=== PATIENT | male | born 1990 | race African-American/Black ===

== ENCOUNTER 2019-04-25 11:39 | Inpatient (IN) ==
--- OUTSIDE RECORDS SUMMARY | 2019-04-25 11:43 | External Medical Summary | Continuity of Care Document ---
:1990 Author Name Danish Blackwell Address Unavailable Unavailable , Care Team Providers Name Role Phone Unavailable Unavailable Unavailable Problems Active medical history not documented Allergies and Adverse Reactions Allergy history not documented Medications Medications not documented Procedures Procedures not documented Immunizations DTP On: 1991 0:00 HIB On: 1991 0:00 Polio On: 1991 0:00 DTP On: 1991 0:00 HIB On: 1991 0:00 Polio On: 1991 0:00 DTP On: 1991 0:00 HIB On: 1991 0:00 DTP On: 13-Oct-1992 0:00 HIB On: 13-Oct-1992 0:00 Polio On: 13-Oct-1992 0:00 MMR On: 13-Oct-1992 0:00 Hepatitis B On: 04-Jun-1994 0:00 Hepatitis B On: 09-May-1995 0:00 DTaP On: 26-Jan-1997 0:00 Polio On: 26-Jan-1997 0:00 MMR On: 26-Jan-1997 0:00 Hepatitis B On: 26-Jan-1997 0:00 Td On: 18-Aug-2002 0:00 Meningo (Menactra) On: 30-Jun-2007 0:00 PPD On: 31-May-2008 0:00 Varicella Comments:had disease Plan of Treatment Planned Observations Planned Goals not documented Results No Known Results Results not documented
[2019-04-25] MEDS ORDERED: ONDANSETRON INJ 2 MG/ML 2 ML VIAL IV STA (12:21)
[2019-04-25] MEDS ORDERED: MoRPHine SULFATE 4 MG/ML 1 ML CARP\\VIAL IV STA (12:21)
[2019-04-25] MEDS ORDERED: SODIUM CHLORIDE 0.9% 1000ML 2,000 ML IV ONE (12:21)
[2019-04-25 12:22] LABS: Basophils # (auto) 0.02 K/uL (0-0.2); Basophils % (auto) 0.2 %; Eosinophils # (auto) 0.14 K/uL (0-0.5); Eosinophils % (auto) 1.7 %; Hematocrit (blood only) 38.9 % (42-52); Hemoglobin 13.7 g/dL (14.0-18.0); Immature Granulocytes # (auto) 0.02 K/uL (0.00-0.02); Immature Granulocytes % (auto) 0.2 %; Lymphocytes % (auto) 19.4 %; Mean Corpuscular Hgb Conc 35.2 g/dL (32-36); Mean Corpuscular Volume 87.8 fL (80-100); Mean Platelet Volume 8.9 fL (7.4-10.4); Monocytes # (auto) 0.97 K/uL (0.11-0.59); Monocytes % (auto) 11.8 %; Neutrophils # (auto) 5.49 K/uL (1.4-6.5); Neutrophils % (auto) 66.7 %; Platelet Count 302 K/uL (130-400); RDW Coefficient of Variation 13.6 % (11.5-14.5); RDW Standard Deviation 43.9 fL (36.4-46.3); Red Blood Count 4.43 M/uL (4.7-6.1); White Blood Count 8.24 K/uL (4.8-10.8)
[2019-04-25 12:38] LABS: Albumin Level 4.3 gm/dl (3.4-5.0); BUN Creatinine Ratio 5.2 (10-20); Calcium 9.3 mg/dl (8.5-10.1); Creatinine Clr Calc Pharmacy 88.6 ml/min; Est GFR (African American) 94.5; Est GFR (Non-African American) 81.6; Potassium 3.1 mmol/L (3.5-5.1)
[2019-04-25 12:41] LABS: Albumin Globulin Ratio 1.1 (0.9-2); Bilirubin,Total 1.2 mg/dl (0.2-1); Globulin 3.9 gm/dl (2.5-4.0); Total Protein 8.2 gm/dl (6.4-8.2)
[2019-04-25] MEDS ORDERED: MoRPHine SULFATE 10 MG/ML CARP/VIAL IV STA ×2 (14:06→16:24)
[2019-04-25] MEDS ORDERED: IOVERSOL 100ml IV PRN (15:35)
--- NOTE | 2019-04-25 15:59 | CT Scan Report ---
CT SCAN OF THE ABDOMEN AND PELVIS WITH IV CONTRAST CLINICAL HISTORY: Right-sided abdominal pain. COMPARISON STUDY: No priors. TECHNIQUE: Following the IV administration of 95 cc of Optiray 320, CT scan of the abdomen and pelvi s is performed from the lung bases to the proximal femora. Images are reviewed in the axial, sagittal , and coronal planes. IV contrast was administered without complication. Oral contrast was utilized. A dose lowering technique was utilized adhering to the principles of ALARA. CT DOSE: 263.97 mGy.cm FINDINGS: Lung bases: The heart is normal in size and without pericardial effusion. The lung bases are clear. Liver: The contrast-enhanced liver is normal in size, contour, and attenuation. There is no intrahepa tic biliary ductal dilatation. The hepatic veins and portal veins are patent. Gallbladder: Unremarkable. Spleen: Normal in size and attenuation. Pancreas: The pancreas appears enlarged and heterogeneous. The gland enhances homogeneously. There is fluid surrounding the pancreas. The splenic vein is patent. Adrenal glands: Unremarkable. Kidneys: The contrast enhanced kidneys are normal in size and without hydronephrosis. The kidneys enh ance symmetrically. Abdominal vasculature: The abdominal aorta is normal in course and caliber. Bowel: The colon is underdistended. Mild diffuse colonic wall thickening is suggested. No bowel obstr uction is seen. The appendix is normal as visualized. Peritoneum: There is a moderate volume of abdominopelvic ascites. No intraperitoneal free air is seen . Lymphadenopathy: None. Pelvic viscera: The bladder, prostate, and seminal vesicles are normal as visualized. Skeletal structures: No lytic or blastic lesions are seen. IMPRESSION: 1. The pancreas appears enlarged, heterogeneous, and edematous and the pancreas is surrounded by flui d. Correlate clinically and with serum amylase/lipase levels for evidence of acute pancreatitis. 2. There is a moderate volume of abdominopelvic ascites. 3. Question mild diffuse colonic wall thickening. Correlate clinically for evidence of a mild nonspec ific pancolitis. 4. Additional findings as above. Electronically signed by: Yordy Pollock M.D. 04/25/2019 3:58 PM
[2019-04-25] MEDS ORDERED: SODIUM CHLORIDE 0.9% 1000ML 1,000 ML IV ONE (16:09)
[2019-04-25] MEDS ORDERED: FOLIC ACID 1 MG in SYRINGE 9.8 ML IV STA (16:09)
[2019-04-25] MEDS ORDERED: THIAMINE HCL 100 MG in SYRINGE 9 ML IV STA (16:09)
[2019-04-25] MEDS: MULTIVITAMIN TAB PO SCH (17:09)
--- NOTE | 2019-04-25 17:10 | Ultrasound Report ---
ULTRASOUND RIGHT UPPER QUADRANT ABDOMEN CLINICAL HISTORY: Right upper quadrant abdominal pain. COMPARISON STUDY: Abdominal CT performed the same day 04/25/2019 TECHNIQUE: Real-time, grayscale, and color flow sonography of the right upper quadrant of the abdomen was performed. Images are reviewed in the transverse and longitudinal planes. FINDINGS: Liver: The liver is normal in size and echotexture. There is no intrahepatic biliary ductal dilatatio n. The main portal vein is patent. Gallbladder: The gallbladder is normal in appearance. No gallstones are identified. There is no gallb ladder wall thickening or pericholecystic fluid. A sonographic Sanchez's sign is reportedly absent. Th e common bile duct measures up to 0.5 cm in diameter. Pancreas: Visualized portions of the pancreatic head and body appear mildly enlarged and heterogeneou s. The splenic vein is patent. Right kidney: Survey images of the right kidney demonstrate normal size and echotexture. There is no hydronephrosis. Ascites: There is a small volume of ascites identified in the right upper quadrant. IMPRESSION: 1. The visualized portions of the pancreas appear mildly enlarged and heterogeneous. 2. No shadowing gallstones are identified. There is no intra or extrahepatic biliary ductal dilatatio n. 3. A small volume of ascites is seen in the right upper quadrant. Electronically signed by: Yoryd Pollock M.D. 04/25/2019 5:09 PM
--- NOTE | 2019-04-25 18:07 | History & Physical Report ---
Date of Service April 25, 2019 Assessment & Plan (1) Acute pancreatitis: This is a 28-year-old male with PMH of alcohol use disorder who presents with worsening abdominal pain x 5 days who was found to have acute pancreatitis. -Likely etoh induced with h/o heavy alcohol intake, last drink last evening -Tachycardic at 110, afebrile, no leukocytosis -Lipase of 6676, also with transaminitis -Ct abd/pelvis: the pancreas appears enlarged, heterogeneous, and edematous and the pancreas is surrounded by fluid. There is a moderate volume of abdominopelvic ascites. Question mild diffuse colonic wall thickening -Received 3 L NSS in ED. Will continue IV hydration with LR @ 200 ml/L -Keep NPO for now. Pain control. Repeat CMP in AM -Routine GI consult (2) Transaminitis: AST of 145, ALT of 113, and T bili of 1.2 -ED provider discussed with GI service due to concern initially for choledocholithiasis but felt to be more consistent with alcoholic pancreatitis -No gall stones or intra or extrahepatic biliary ductal dilatation on GB ultrasound. CT abd/pelvis consistent with acute pancreatitis. No intrahepatic biliary ductal dilatation -Continue monitoring liver profile (3) Alcohol use disorder: Serum alcohol level <3 -IV thiamine and folic acid given in ED -Gabapentin and IV ativan per withdrawal protocol -Additional PRN ativan for anxiety/agitation -PO Thiamine, folic acid and MV tomorrow DVT Ppx: Early ambulation Code status: FULL PCP: Alison Dispo: Admitted to telemetry. Plan to return home once medically stable. Patient seen in collaboration with Dr. Bishop. Please see addendum. History of Present Illness Chief Complaint: Abdominal pain, nausea, vomiting Primary Care Provider: Satinder Rosas This is a 28-year-old male with PMH of alcohol use disorder who presents with worsening abdominal pain x 5 days. Patient started to develop a tugging and twisting sensation in his epigastrium on Friday. Has since then continued to have pain and developed nausea and vomiting as well as diarrhea. Pain is in the midepigastrium currently with radiation to his back. Denies any abdominal pain similar to this in the past. Denies any history of pancreatitis. Patient endorses drinking two 40 ounce beers daily and has done so for the past 2 years. Has drank less than usual these past few days and has experienced tremors that went away once he drank again. Last drink was last night. Denies any fever, chills, lightheadedness, headache, chest pain, palpitations, shortness of breath, hematemesis, constipation, melena or hematochezia. Patient is normotensive but tachycardic up to 110 initially. Lipase of 6676. Also with transaminitis with AST of 145, ALT of 113, and T bili of 1.2. Serum alcohol level is less than 3. Allergies Allergy/AdvReac Type Severity Reaction Status Date / Time milk Allergy Unknown unknown Unverified 04/25/19 13:15 No Known Allergies AdvReac Unknown ANAPHYLAXIS Unverified 04/25/19 13:15 Home Medications Home Medications Medication Instructions Recorded Confirmed Type No Known Home Medications 04/25/19 04/25/19 History Past Med/Surg History Medical History Acute alcoholic pancreatitis (Acute) Alcohol use disorder (Chronic) Surgical History No pertinent past surgical history (Chronic) Family History Other No significant family history Social History Preferred Language: Hungarian Communication Ability: Effective Beliefs That Will Affect Care: None marital status: Single Current Living Situation: Significant Other current occupational status: unemployed Other Information That Helps Us Care for You: No Feels Safe at Home: Yes Smoking Status: Light tobacco smoker Tobacco Type: cigarettes Do You Dip or Chew Tobacco: No Hx Alcohol Use: Yes Alcohol type: beer Hx Substance Use: No Review of Systems Review of Systems: At least ten systems reviewed and negative except as noted in the HPI. Physical Exam Physical Exam: General Appearance: WD/WN, well-built male, no apparent distress Head: normocephalic, atraumatic Eyes: normal inspection, non-icteric, PERRL, EOMI ENT: hearing grossly normal, pharynx normal (dry mucous membranes) Neck: supple, no JVD, no adenopathy Respiratory/Chest: lungs clear to auscultation. No wheezes, rales or rhonci. No respiratory distress or accessory muscle use Cardiovascular: tachycardic, no murmur, normal peripheral pulses Abdomen/GI: normal bowel sounds, soft, tender to palpation in epigastrium, LUQ Extremities/Musculoskelatal: normal inspection, no calf tenderness, normal capillary refill, no pedal edema Neurologic/Psych: alert, normal mood/affect, oriented x 3 Skin: mild jaundice noted in trunk, warm/dry Results & Data Vital Signs (Past 12 Hours) Vital Signs Temp Pulse Pulse Resp BP BP Pulse Ox 04/25/19 17:01 20 130/85 99 04/25/19 16:30 94 H 19 137/90 97 04/25/19 16:00 99 H 19 136/93 97 04/25/19 15:31 107 H 18 140/94 97 04/25/19 15:00 103 H 18 129/88 98 04/25/19 13:30 100 H 18 115/81 100 04/25/19 12:10 97 H 18 100 04/25/19 11:46 36.8 C 111 H 18 112/73 100 Laboratory Results Short CBC 04/25/19 04/25/19 04/25/19 Range/Units 12:07 12:07 17:58 WBC 8.24 (4.8-10.8) K/uL RBC 4.43 L (4.7-6.1) M/uL Hgb 13.7 L (14.0-18.0) g/dL Hct 38.9 L (42-52) % MCV 87.8 (80-100) fL MCH 30.9 (25-34) pg MCHC 35.2 (32-36) g/dL RDW Std Deviation 43.9 (36.4-46.3) fL RDW Coeff of Cherise 13.6 (11.5-14.5) % Plt Count 302 (130-400) K/uL MPV 8.9 (7.4-10.4) fL Immature Gran % (Auto) 0.2 % Neut % (Auto) 66.7 % Lymph % (Auto) 19.4 % Branch % (Auto) 11.8 % Eos % (Auto) 1.7 % Baso % (Auto) 0.2 % Immature Gran # (Auto) 0.02 (0.00-0.02) K/uL Neut # (Auto) 5.49 (1.4-6.5) K/uL Lymph # (Auto) 1.60 (1.2-3.4) K/uL Branch # (Auto) 0.97 H (0.11-0.59) K/uL Eos # (Auto) 0.14 (0-0.5) K/uL Baso # (Auto) 0.02 (0-0.2) K/uL Sodium 134 L (136-145) mmol/L Potassium 3.1 L (3.5-5.1) mmol/L Chloride 100 (98-107) mmol/L Carbon Dioxide 23 (21-32) mmol/L Anion Gap 11.0 (3-11) BUN 6 L (7-18) mg/dl Creatinine 1.21 (0.6-1.4) mg/dl Est Cr Clr Drug Dosing 88.6 ml/min Est GFR ( Amer) 94.5 Est GFR (Non-Af Amer) 81.6 BUN/Creatinine Ratio 5.2 L (10-20) Glucose 129 H (70-99) mg/dl Calcium 9.3 (8.5-10.1) mg/dl Total Bilirubin 1.2 H (0.2-1) mg/dl AST 145 H (15-37) U/L ALT 113 H (12-78) U/L Alkaline Phosphatase 80 (45-117) U/L Total Protein 8.2 (6.4-8.2) gm/dl Albumin 4.3 (3.4-5.0) gm/dl Globulin 3.9 (2.5-4.0) gm/dl Albumin/Globulin Ratio 1.1 (0.9-2) Lipase 6676 H (73-393) U/L Urine Color Urine Appearance (Clear) Urine pH (4.5-7.5) Ur Specific Hayes (1.000-1.030) Urine Protein (Negative) Urine Glucose (UA) (Negative) Urine Ketones (Negative) Urine Blood (Negative) Urine Nitrite (Negative) Urine Bilirubin (Negative) Urine Urobilinogen (Negative) Ur Leukocyte Esterase (Negative) Ethyl Alcohol mg/dL < 3.0 (0-3) mg/dl 04/25/19 Range/Units 18:40 WBC (4.8-10.8) K/uL RBC (4.7-6.1) M/uL Hgb (14.0-18.0) g/dL Hct (42-52) % MCV (80-100) fL MCH (25-34) pg MCHC (32-36) g/dL RDW Std Deviation (36.4-46.3) fL RDW Coeff of Cherise (11.5-14.5) % Plt Count (130-400) K/uL MPV (7.4-10.4) fL Immature Gran % (Auto) % Neut % (Auto) % Lymph % (Auto) % Branch % (Auto) % Eos % (Auto) % Baso % (Auto) % Immature Gran # (Auto) (0.00-0.02) K/uL Neut # (Auto) (1.4-6.5) K/uL Lymph # (Auto) (1.2-3.4) K/uL Branch # (Auto) (0.11-0.59) K/uL Eos # (Auto) (0-0.5) K/uL Baso # (Auto) (0-0.2) K/uL Sodium (136-145) mmol/L Potassium (3.5-5.1) mmol/L Chloride (98-107) mmol/L Carbon Dioxide (21-32) mmol/L Anion Gap (3-11) BUN (7-18) mg/dl Creatinine (0.6-1.4) mg/dl Est Cr Clr Drug Dosing ml/min Est GFR ( Amer) Est GFR (Non-Af Amer) BUN/Creatinine Ratio (10-20) Glucose (70-99) mg/dl Calcium (8.5-10.1) mg/dl Total Bilirubin (0.2-1) mg/dl AST (15-37) U/L ALT (12-78) U/L Alkaline Phosphatase (45-117) U/L Total Protein (6.4-8.2) gm/dl Albumin (3.4-5.0) gm/dl Globulin (2.5-4.0) gm/dl Albumin/Globulin Ratio (0.9-2) Lipase (73-393) U/L Urine Color Yellow Urine Appearance Clear (Clear) Urine pH 5.0 (4.5-7.5) Ur Specific Hayes > 1.045 H (1.000-1.030) Urine Protein Negative (Negative) Urine Glucose (UA) Negative (Negative) Urine Ketones Negative (Negative) Urine Blood Negative (Negative) Urine Nitrite Negative (Negative) Urine Bilirubin Negative (Negative) Urine Urobilinogen Negative (Negative) Ur Leukocyte Esterase Negative (Negative) Ethyl Alcohol mg/dL (0-3) mg/dl BMP 04/25/19 12:07 Sodium 134 L Potassium 3.1 L Chloride 100 Carbon Dioxide 23 BUN 6 L Creatinine 1.21 Glucose 129 H Calcium 9.3 Liver Function 04/25/19 Range/Units 12:07 Total Bilirubin 1.2 H (0.2-1) mg/dl AST 145 H (15-37) U/L ALT 113 H (12-78) U/L Alkaline Phosphatase 80 (45-117) U/L Albumin 4.3 (3.4-5.0) gm/dl Urine 04/25/19 Range/Units 18:40 Urine Color Yellow Urine Appearance Clear (Clear) Urine pH 5.0 (4.5-7.5) Ur Specific Hayes > 1.045 H (1.000-1.030) Urine Protein Negative (Negative) Urine Glucose (UA) Negative (Negative) Diagnostic Findings GB ultrasound: IMPRESSION: 1. The visualized portions of the pancreas appear mildly enlarged and heterogeneous. 2. No shadowing gallstones are identified. There is no intra or extrahepatic biliary ductal dilatation. 3. A small volume of ascites is seen in the right upper quadrant. CT abd/pelvis: IMPRESSION: 1. The pancreas appears enlarged, heterogeneous, and edematous and the pancreas is surrounded by fluid. Correlate clinically and with serum amylase/lipase levels for evidence of acute pancreatitis. 2. There is a moderate volume of abdominopelvic ascites. 3. Question mild diffuse colonic wall thickening. Correlate clinically for evidence of a mild nonspecific pancolitis. 4. Additional findings as above. Supervising Physician Co-Signing Physician Notes Attending Addendum: delayed entry date of service as noted above care coordinated with QUYEN Medellin please refer to her notes for full details, I agree with her notes patient seen and examined, records reviewed by myself as well on exam, patient seen resting in bed, sitting up, not in distress, smiling epigastric pain adequately managed reports belching but no nausea, chest pain, shortness of breath, palpitations, dizziness no other symptoms VS noted and reviewed oriented x 3 , not in distress, speaks in sentences with no effort nor accessory muscle use normal rate, regular rhythm, no murmurs clear breath sounds bilaterally non distended, soft, mildly tender no bipedal edema, erythema, warmth no neuro deficits WBC 8.[address] abdomen: 1. The pancreas appears enlarged, heterogeneous, and edematous and the pancreas is surrounded by fluid. Correlate clinically and with serum amylase/lipase levels for evidence of acute pancreatitis. 2. There is a moderate volume of abdominopelvic ascites. 3. Question mild diffuse colonic wall thickening. Correlate clinically for evidence of a mild nonspecific pancolitis. 4. Additional findings as above. ASSESSMENT AND PLAN ACUTE PANCREATITIS, LIKELY ALCOHOL INDUCED received IV fluid boluses continue LR at 200cc/hr NPO PRN Analgesics consult GI TRANSAMINITIS likely from Alcoholism US GB no signs of biliary obstruction monitor ALCOHOLISM alcohol withdrawal protocol other diagnoses and plan of care as per QUYEN Medellin's notes Rayshawn Bishop MD
--- NOTE | 2019-04-25 18:50 | Emergency Department Note ---
Entered by Carla Currie acting as a scribe for Osman Muhammad DO History of Present Illness General Chief complaint: Abdominal Pain Stated complaint: CRAMPS,CHILLS,PAIN IN STOMACH Time Seen by Provider: 04/25/19 11:54 Source: patient History of Present Illness Onset (ago): day(s) 5 Location: abdomen Pain Consistency: + other (worsening) Maximum Pain Intensity: 7 Current Pain Intensity: 9 Quality: + other ("bloated") Relieved By: + other (drinking water) Exacerbated By: + movement Associated symptoms: + denies other symptoms (hematemesis, hematochezia, melena, pain with urination, burning with urination), + nausea/vomiting (vomiting) and + other (diarrhea) The patient is a 28 year old male who presents to the ED with complaints of worsening abdominal pain starting 5 days ago. The patient states that the pain feels like it is all throughout his abdomen, but is worst in the upper middle. He states that when he moves, though, it makes the pain travel all throughout his abdomen. He notes that drinking water helps the pain some. He reports that at first he thought it was constipation as he was bloated, but he has moved his bowels and it hasnt gotten better. He notes that his last normal bowel movement was last night, but he moved them this morning and it was diarrhea. The patient states that today the pain was so much worse and he couldnt take it anymore so he came to the ED. The patient complains of vomiting starting today. He notes that he vomited 5-6 times. The patient currently rates his pain as a 9/10 in severity. The patient denies hematemesis, hematochezia, melena, being around anyone sick, burning with urination, pain with urination, and a history of abdominal surgeries. Patient initially admitted that he drinks about 240 ounce beers per day and has been doing this for the past 2 years. Last drink was last night. Home Medications Home Medications Medication Instructions Recorded Confirmed Type No Known Home Medications 04/25/19 04/25/19 History Allergies Allergy/AdvReac Type Severity Reaction Status Date / Time milk Allergy Unknown unknown Unverified 04/25/19 13:15 No Known Allergies AdvReac Unknown ANAPHYLAXIS Unverified 04/25/19 13:15 Past Med/Surg History Medical History Alcoholic intoxication (Acute) Family History Other No significant family history Social History Preferred Language: Mexican marital status: Single Current Living Situation: Significant Other current occupational status: unemployed Feels Safe at Home: Yes Smoking Status: Light tobacco smoker Review of Systems See HPI for pertinent positives & negatives. and A total of 10 systems reviewed and were otherwise negative Physical Exam Vital Signs Vital Signs - 24 hr 04/25/19 11:46 04/25/19 12:10 04/25/19 13:30 Temperature 36.8 C Temperature Source Oral Sepsis Recent Fever Within 48 Hours No Sepsis New/Unexplained Change in Mental Status No Sepsis Action Taken by Nursing No Action Required Pulse Rate 111 H 97 H Pulse Rate [Apical] 100 H Pulse Rate from SpO2 Sensor Pulse Rhythm Regular Pulse Rhythm [Apical] Regular Pulse Strength [Apical] Normal Respiratory Rate 18 18 18 Respiratory Effort / Characteristics Non-Labored Non-Labored Spontaneous Respiratory Depth Normal Normal Respiratory Pattern Regular Regular Blood Pressure 112/73 Blood Pressure [Left Arm] 115/81 Blood Pressure Mean 86 Blood Pressure Mean [Left Arm] 92 Blood Pressure Position Sitting Pulse Oximetry 100 100 100 Oxygen Delivery Method Room Air Room Air Room Air 04/25/19 15:00 04/25/19 15:31 04/25/19 16:00 Temperature Temperature Source Sepsis Recent Fever Within 48 Hours Sepsis New/Unexplained Change in Mental Status Sepsis Action Taken by Nursing Pulse Rate 107 H 99 H Pulse Rate [Apical] 103 H Pulse Rate from SpO2 Sensor 100 H Pulse Rhythm Pulse Rhythm [Apical] Pulse Strength [Apical] Respiratory Rate 18 18 19 Respiratory Effort / Characteristics Respiratory Depth Respiratory Pattern Blood Pressure 140/94 136/93 Blood Pressure [Left Arm] 129/88 Blood Pressure Mean 109 107 Blood Pressure Mean [Left Arm] 101 Blood Pressure Position Pulse Oximetry 98 97 97 Oxygen Delivery Method Room Air Room Air Room Air 04/25/19 16:30 04/25/19 17:01 Temperature Temperature Source Sepsis Recent Fever Within 48 Hours Sepsis New/Unexplained Change in Mental Status Sepsis Action Taken by Nursing Pulse Rate 94 H Pulse Rate [Apical] Pulse Rate from SpO2 Sensor 95 H 95 H Pulse Rhythm Pulse Rhythm [Apical] Pulse Strength [Apical] Respiratory Rate 19 20 Respiratory Effort / Characteristics Respiratory Depth Respiratory Pattern Blood Pressure 137/90 130/85 Blood Pressure [Left Arm] Blood Pressure Mean 105 100 Blood Pressure Mean [Left Arm] Blood Pressure Position Pulse Oximetry 97 99 Oxygen Delivery Method Room Air Room Air GENERAL: laying in bed, moderate distress, holding right mid abdomen EYE EXAM: normal conjunctiva OROPHARYNX: no exudate, no erythema, lips, buccal mucosa, and tongue normal and mucous membranes are moist NECK: supple, no nuchal rigidity, no adenopathy, non-tender LUNGS: Clear to auscultation. Normal chest wall mechanics HEART: no murmurs, S1 normal and S2 normal ABDOMEN: abdomen soft, tenderness to palpation in the epigastric region and right upper quadrant, normo-active bowel sounds, no masses, no rebound or guarding. BACK: Back is symmetrical on inspection and there is no deformity, no midline tenderness, no CVA tenderness. SKIN: no rashes and no bruising UPPER EXTREMITIES: upper extremities are grossly normal. LOWER EXTREMITIES: No pitting edema. NEURO EXAM: Normal sensorium, cranial nerves II-XII grossly intact, normal speech, no gross weakness of arms, no gross weakness of legs. Course ED COURSE: Vital signs were reviewed and showed tachycardia. The patients medical record was reviewed The above diagnostic studies were performed and reviewed. ED treatments and interventions as stated above. 1214: The patient was evaluated in room B9. A complete history and physical examination was performed. 1511: I reevaluated the patient and updated him on his test results thus far. 1617: I discussed the patient's case with Dr. Mary GONZALEZ. He agrees with bringing the patient in. 1625: I discussed the patient's case with SHANDA Larson Hospitalist. She will evaluate the patient for further management. 1628: Upon reevaluation, the patient is resting comfortably. I discussed my findings with the patient and he understands and agrees with the treatment plan. Based on the patients age, coexisting illnesses, exam and lab findings the decision to treat as an inpatient was made. The patient remained stable while under my care. The patient will be evaluated for further management. Consultations Consultation #1: I discussed the patient's case with Dr. Mary GONZALEZ. He agrees with bringing the patient in. Time: 16:17 Consultation #2: I discussed the patient's case with SHANDA Larson [facility] Hospitalist. She will evaluate the patient for further management. Time: 16:25 Administered Medications Ioversol (Optiray 320 100ml) 94 ml IV ONCE PRN PRN Reason: Interaction Checking Stop: 04/29/19 15:34 Last Admin: 04/25/19 15:35 Dose: 94 ml Documented by: [id number] Multivitamins (Multivitamin Tab) 1 tab PO QAM HOA Stop: 05/25/19 16:29 Last Admin: 04/25/19 17:09 Dose: 1 tab Documented by: [id number] Discontinued Medications Sodium Chloride (Nss 1000ml) 2,000 mls @ 999 mls/hr IV .Q2H1M ONE Stop: 04/25/19 14:21 Last Infusion: 04/25/19 14:45 Dose: 0 mls/hr Documented by: [id number] Admin: 04/25/19 12:43 Dose: 999 mls/hr Documented by: [id number] Sodium Chloride (Nss 1000ml) 1,000 mls @ 999 mls/hr IV .Q1H1M ONE Stop: 04/25/19 17:09 Last Infusion: 04/25/19 17:36 Dose: 0 mls/hr Documented by: [id number] Admin: 04/25/19 16:31 Dose: 999 mls/hr Documented by: [id number] Thiamine HCl 100 mg/ Syringe 10 mls @ 2 mls/min IV NOW STA Stop: 04/25/19 16:13 Last Admin: 04/25/19 17:01 Dose: 2 mls/min Documented by: [id number] Folic Acid 1 mg/ Syringe 10 mls @ 5 mls/min IV NOW STA Stop: 04/25/19 16:10 Last Admin: 04/25/19 17:01 Dose: 5 mls/min Documented by: [id number] Morphine Sulfate (Morphine Sulfate) 4 mg IV NOW STA Stop: 04/25/19 12:22 Last Admin: 04/25/19 12:32 Dose: 4 mg Documented by: [id number] Morphine Sulfate (Morphine Sulfate) 6 mg IV NOW STA Stop: 04/25/19 14:07 Last Admin: 04/25/19 14:08 Dose: 6 mg Documented by: [id number] Morphine Sulfate (Morphine Sulfate) 6 mg IV NOW STA Stop: 04/25/19 16:25 Last Admin: 04/25/19 16:32 Dose: 6 mg Documented by: [id number] Ondansetron HCl (Zofran) 4 mg IV NOW STA Stop: 04/25/19 12:22 Last Admin: 04/25/19 12:33 Dose: 4 mg Documented by: [id number] Medical Decision Making Differential Diagnosis Differential diagnosis: Etiologies such as biliary colic, cholecystitis, hepatitis, pancreatitis, cardiac disease, pancreatitis, gastritis, peptic ulcer disease, appendicitis, cystitis, diverticulitis, mesenteric ischemia, inflammatory bowel disease, ileus, bowel obstruction, testicular torsion, aortic pathology, shingles, as well as others were considered. Medical Records Attestation: I reviewed the patient's medical records. Home Medications Current Medication List: was personally reviewed by me Laboratory Data Attestation: I reviewed the patient's lab results. Result diagrams: 04/25/19 12:07 04/25/19 12:07 Lab Results 04/25/19 04/25/19 04/25/19 Range/Units 12:07 12:07 17:58 WBC 8.24 (4.8-10.8) K/uL RBC 4.43 L (4.7-6.1) M/uL Hgb 13.7 L (14.0-18.0) g/dL Hct 38.9 L (42-52) % MCV 87.8 (80-100) fL MCH 30.9 (25-34) pg MCHC 35.2 (32-36) g/dL RDW Std Deviation 43.9 (36.4-46.3) fL RDW Coeff of Cherise 13.6 (11.5-14.5) % Plt Count 302 (130-400) K/uL MPV 8.9 (7.4-10.4) fL Immature Gran % (Auto) 0.2 % Neut % (Auto) 66.7 % Lymph % (Auto) 19.4 % [place] % (Auto) 11.8 % Eos % (Auto) 1.7 % Baso % (Auto) 0.2 % Immature Gran # (Auto) 0.02 (0.00-0.02) K/uL Neut # (Auto) 5.49 (1.4-6.5) K/uL Lymph # (Auto) 1.60 (1.2-3.4) K/uL [place] # (Auto) 0.97 H (0.11-0.59) K/uL Eos # (Auto) 0.14 (0-0.5) K/uL Baso # (Auto) 0.02 (0-0.2) K/uL Sodium 134 L (136-145) mmol/L Potassium 3.1 L (3.5-5.1) mmol/L Chloride 100 (98-107) mmol/L Carbon Dioxide 23 (21-32) mmol/L Anion Gap 11.0 (3-11) BUN 6 L (7-18) mg/dl Creatinine 1.21 (0.6-1.4) mg/dl Est Cr Clr Drug Dosing 88.6 ml/min Est GFR ( Amer) 94.5 Est GFR (Non-Af Amer) 81.6 BUN/Creatinine Ratio 5.2 L (10-20) Glucose 129 H (70-99) mg/dl Calcium 9.3 (8.5-10.1) mg/dl Total Bilirubin 1.2 H (0.2-1) mg/dl AST 145 H (15-37) U/L ALT 113 H (12-78) U/L Alkaline Phosphatase 80 (45-117) U/L Total Protein 8.2 (6.4-8.2) gm/dl Albumin 4.3 (3.4-5.0) gm/dl Globulin 3.9 (2.5-4.0) gm/dl Albumin/Globulin Ratio 1.1 (0.9-2) Lipase 6676 H (73-393) U/L Ethyl Alcohol mg/dL < 3.0 (0-3) mg/dl Imaging Data Radiologist's Impression: Radiology results as stated below per my review and the radiologist's interpretation: ULTRASOUND RIGHT UPPER QUADRANT ABDOMEN CLINICAL HISTORY: Right upper quadrant abdominal pain. COMPARISON STUDY: Abdominal CT performed the same day 04/25/2019 TECHNIQUE: Real-time, grayscale, and color flow sonography of the right upper quadrant of the abdomen was performed. Images are reviewed in the transverse and longitudinal planes. FINDINGS: Liver: The liver is normal in size and echotexture. There is no intrahepatic biliary ductal dilatation. The main portal vein is patent. Gallbladder: The gallbladder is normal in appearance. No gallstones are identified. There is no gallbladder wall thickening or pericholecystic fluid. A sonographic Sanchez's sign is reportedly absent. The common bile duct measures up to 0.5 cm in diameter. Pancreas: Visualized portions of the pancreatic head and body appear mildly enlarged and heterogeneous. The splenic vein is patent. Right kidney: Survey images of the right kidney demonstrate normal size and echotexture. There is no hydronephrosis. Ascites: There is a small volume of ascites identified in the right upper quadrant. IMPRESSION: 1. The visualized portions of the pancreas appear mildly enlarged and heterogeneous. 2. No shadowing gallstones are identified. There is no intra or extrahepatic biliary ductal dilatation. 3. A small volume of ascites is seen in the right upper quadrant. Electronically signed by: Yordy Pollock M.D. 04/25/2019 5:[address] SCAN OF THE ABDOMEN AND PELVIS WITH IV CONTRAST CLINICAL HISTORY: Right-sided abdominal pain. COMPARISON STUDY: No priors. TECHNIQUE: Following the IV administration of 95 cc of Optiray 320, CT scan of the abdomen and pelvis is performed from the lung bases to the proximal femora. Images are reviewed in the axial, sagittal, and coronal planes. IV contrast was administered without complication. Oral contrast was utilized. A dose lowering technique was utilized adhering to the principles of ALARA. CT DOSE: 263.97 mGy.cm FINDINGS: Lung bases: The heart is normal in size and without pericardial effusion. The lung bases are clear. Liver: The contrast-enhanced liver is normal in size, contour, and attenuation. There is no intrahepatic biliary ductal dilatation. The hepatic veins and portal veins are patent. Gallbladder: Unremarkable. Spleen: Normal in size and attenuation. Pancreas: The pancreas appears enlarged and heterogeneous. The gland enhances homogeneously. There is fluid surrounding the pancreas. The splenic vein is patent. Adrenal glands: Unremarkable. Kidneys: The contrast enhanced kidneys are normal in size and without hydronephrosis. The kidneys enhance symmetrically. Abdominal vasculature: The abdominal aorta is normal in course and caliber. Bowel: The colon is underdistended. Mild diffuse colonic wall thickening is suggested. No bowel obstruction is seen. The appendix is normal as visualized. Peritoneum: There is a moderate volume of abdominopelvic ascites. No intraperitoneal free air is seen. Lymphadenopathy: None. Pelvic viscera: The bladder, prostate, and seminal vesicles are normal as visualized. Skeletal structures: No lytic or blastic lesions are seen. IMPRESSION: 1. The pancreas appears enlarged, heterogeneous, and edematous and the pancreas is surrounded by fluid. Correlate clinically and with serum amylase/lipase levels for evidence of acute pancreatitis. 2. There is a moderate volume of abdominopelvic ascites. 3. Question mild diffuse colonic wall thickening. Correlate clinically for evidence of a mild nonspecific pancolitis. 4. Additional findings as above. Electronically signed by: Yordy Pollock M.D. 04/25/2019 3:58 PM Blood Pressure Blood Pressure Findings: Normal blood pressure Blood Pressure Disposition: did not require urgent referral MDM Narrative Patient is a 28-year-old male who appears to be an alcoholic who presents the ER for abdominal pain associate with nausea vomiting. Abdominal pain is a right mid abdomen. Labs show a mild tachycardia. Labs were obtained showed no significant leukocytosis or anemia. BMP with mild hypokalemia. Bilirubin was elevated at 1.2 along with a transaminitis at the low 140s to 110s. Lipase was significantly elevated at 7000. UA was pending upon admission. Alcohol was negative. CT abdomen pelvis shows severe pancreatitis. There is no obvious obstruction or cholecystitis/choledocholithiasis. Do favor that this is likely related to alcohol. Discussed with GI and they will follow her tomorrow. Discussed the hospitalist. Patient was given multiple doses of IV narcotics IV Zofran. Patient was given IV folic acid and thiamine. Patient family were updated at bedside. Hemoglobin was normal not consistent with hemorrhagic pancreatitis. He was admitted to the hospital as stated before. Impression & Plan Pancreatitis, Alcohol abuse, Transaminitis Discharge Plan Visit Data Chief Complaint: Abdominal Pain Stated Complaint: CRAMPS,CHILLS,PAIN IN STOMACH ED Provider: Osman Muhammad Discharge Problem: Pancreatitis, Alcohol abuse, Transaminitis Patient Disposition: Being Evaluated by Hospitalist Forms Stand Alone Forms: My [facility] Prescriptions Prescriptions: No Action No Known Home Medications RF: 0 Referrals Referrals: Satinder Rosas [Primary Care Provider] - Discharge Problem: Pancreatitis Qualifiers: Chronicity: acute Pancreatitis type: alcohol induced Acute pancreatitis comp lication: unspecified Qualified Code(s): K85.20 - Alcohol induced acute pancreatitis without necrosis or infection The scribe's documentation has been prepared under my direction and personally reviewed by me in its entirety. I confirm that the note above accurately reflects all work, treatment, procedures, and medical decision making performed by me.
[2019-04-25 18:59] LABS: Appearance Urine Clear (Clear); Bilirubin Urine Negative (Negative); Blood Urine Negative (Negative); Color Urine Yellow; Glucose Urine UA Negative (Negative); Ketones Urine Negative (Negative); Leukocyte Esterase Urine Negative (Negative); Nitrite Urine Negative (Negative); Protein Urine Negative (Negative); Specific Gravity Urine > 1.045 (1.000-1.030); Urobilinogen Urine Negative (Negative)
[2019-04-25] MEDS ORDERED: LORazepam 1 MG/2 ML VIAL IV PRN (19:38)
[2019-04-25] MEDS ORDERED: GABAPENTIN 1200MG ALCOHOL WITHDRAWAL LOAD PO STA (19:38)
[2019-04-25] MEDS ORDERED: ONDANSETRON INJ 2 MG/ML 2 ML VIAL IV PRN (19:38)
[2019-04-25] MEDS ORDERED: GABAPENTIN 600 MG TAB PO SCH (20:00)
[2019-04-25] MEDS: LACTATED RINGER'S 1,000 ML IV SCH (20:29)
[2019-04-25] MEDS: HYDROmorphone INJ 0.5 MG/0.5 ML SYR IV PRN (20:31)
[2019-04-25 21:16] LABS: BUN Creatinine Ratio 5.5 (10-20); Calcium 8.8 mg/dl (8.5-10.1); Creatinine Clr Calc Pharmacy 114.7 ml/min; Est GFR (Non-African American) 105.2; Potassium 4.3 mmol/L (3.5-5.1)
[2019-04-26] MEDS: LACTATED RINGER'S 1,000 ML IV SCH ×5 (00:45→22:25)
[2019-04-26] MEDS: METOPROLOL TARTRATE 1 MG/ML VIAL IV PRN ×2 (00:47→06:34)
[2019-04-26] MEDS: HYDROmorphone INJ 0.5 MG/0.5 ML SYR IV PRN ×3 (01:44→23:30)
[2019-04-26] MEDS ORDERED: METOPROLOL TARTRATE 1 MG/ML VIAL IV STA (03:15)
[2019-04-26] MEDS ORDERED: SODIUM CHLORIDE 0.9% 500 ML IV SCH (03:30)
[2019-04-26] MEDS: GABAPENTIN 600 MG TAB PO SCH ×3 (05:00→22:26)
[2019-04-26 06:20] LABS: Hematocrit (blood only) 41.4 % (42-52); Hemoglobin 14.1 g/dL (14.0-18.0); Mean Corpuscular Hgb Conc 34.1 g/dL (32-36); Mean Corpuscular Volume 89.8 fL (80-100); Mean Platelet Volume 9.4 fL (7.4-10.4); Platelet Count 221 K/uL (130-400); RDW Coefficient of Variation 13.9 % (11.5-14.5); RDW Standard Deviation 45.5 fL (36.4-46.3); Red Blood Count 4.61 M/uL (4.7-6.1); White Blood Count 8.04 K/uL (4.8-10.8)
--- NOTE | 2019-04-26 06:42 | Hospitalist Progress Note ---
Date of Service April 26, 2019 Assessment & Plan (1) Acute pancreatitis: This is a 28-year-old male with PMH of alcohol use disorder who presents with worsening abdominal pain x 5 days who was found to have acute pancreatitis. -etoh induced with h/o heavy alcohol intake, last drink last evening [employer] -Tachycardic at 110, afebrile, no leukocytosis -Lipase of 6676, also with transaminitis -Ct abd/pelvis: the pancreas appears enlarged, heterogeneous, and edematous and the pancreas is surrounded by fluid. There is a moderate volume of abdominopelvic ascites. Question mild diffuse colonic wall thickening -Received 3 L NSS in ED. Will continue IV hydration with LR @ 200 ml/L -Start Clears, Pain control. Monitor Daily Labs -Abstinence d/w patient -Routine GI consult (2) Transaminitis: AST of 145, ALT of 113, and T bili of 1.2 -ED provider discussed with GI service due to concern initially for choledocholithiasis but felt to be more consistent with alcoholic pancreatitis -No gall stones or intra or extrahepatic biliary ductal dilatation on GB ultrasound. CT abd/pelvis consistent with acute pancreatitis. No intrahepatic biliary ductal dilatation -Continue monitoring liver profile (3) Alcohol use disorder: Serum alcohol level <3 -IV thiamine and folic acid given in ED -Gabapentin and IV ativan per withdrawal protocol -Additional PRN ativan for anxiety/agitation -PO Thiamine, folic acid and MV tomorrow DVT Ppx: Early ambulation Code status: FULL PCP: Ashokreh Dispo: Admitted to telemetry. Plan to return home once medically stable. ROS-No Headache, No Visual Changes, No Nausea, No Vomiting, No Fever, No Chills, No Neck Pain or Stiffness, No Chest Pain, No Palpitations, No SOB, No KRISHNA, No Cough, No Sputum, No Wheezing, +Abdominal Pain, No Diarrhea, No Hematemesis, No Hemoptysis, No Unexpected Weight Loss, No Flank pain, No Melena, No Hematochezia , No Frequency, No Urgency, No Burning, No Hematuria, No Rashes, No Diaphoresis. Appetite is Normal Physical Exam Gen-AAO x 3, NAD, Afebrile Head-NCAT, EOMI, PERRLA, Anicteric Sclera, No Posterior Pharyngeal Erythema Neck-Supple, No JVD, No Thyromegaly, No Masses, No LAD, No Bruits Lungs-Clear to Auscultation Bilaterally, No Rales, No Rhonchi, No Wheezing, No Crepitus Chest-No S4, +S1, +S2, No S3, No Murmurs, No Rubs, No Gallops, No Ectopy Abdomen-Soft, Bowel Sounds Present, Tender, Non Distended, No Hepatomegaly, No Splenomegaly, No Palpable Masses, No Rebound, No Rigidity, No Guarding Musculoskeletal-Full Range of Motion Bilaterally, No CVAT Extremities-No Cyanosis, No Clubbing, No Edema Nuero-Cranial Nerves II-XII grossly intact, Motor WNL, DTRs WNL, Strength WNL, Non Focal Psych-Normal Mood Results & Data Vital Signs (Past 12 Hours) Vital Signs Temp Pulse Pulse Pulse Resp BP BP 04/26/19 06:34 138 H 124/91 04/26/19 03:43 137 H 135/79 04/26/19 02:56 36.8 C 130 H 20 135/79 04/26/19 00:47 137 H 128/92 04/25/19 23:11 37.1 C 125 H 18 141/89 H 04/25/19 22:45 36.5 C 119 H 22 136/100 04/25/19 19:38 100 H 04/25/19 19:31 36.6 C 98 H 142/94 H 04/25/19 18:53 109 H 19 130/90 Pulse Ox 04/26/19 06:34 04/26/19 03:43 04/26/19 02:56 97 04/26/19 00:47 04/25/19 23:11 98 04/25/19 22:45 96 04/25/19 19:38 04/25/19 19:31 98 04/25/19 18:53 99
[2019-04-26 06:52] LABS: Albumin Level 3.2 gm/dl (3.4-5.0); BUN Creatinine Ratio 6.1 (10-20); Calcium 8.6 mg/dl (8.5-10.1); Est GFR (African American) 129.9; Est GFR (Non-African American) 112.1
[2019-04-26 06:57] LABS: Albumin Globulin Ratio 1.1 (0.9-2); Bilirubin,Total 1.5 mg/dl (0.2-1); Total Protein 6.2 gm/dl (6.4-8.2)
[2019-04-26] MEDS: THIAMINE HCL 100 MG TAB PO SCH (08:49)
[2019-04-26] MEDS: FOLIC ACID 1 MG TAB PO SCH (08:49)
[2019-04-26] MEDS ORDERED: MULTIVITAMIN TAB PO SCH (09:00)
[2019-04-26] MEDS: KETOROLAC TROMETHAMINE 15 MG/ML VIAL IV PRN ×2 (09:16→19:33)
[2019-04-26] MEDS: MULTIVITAMIN TAB PO SCH (10:20)
[2019-04-26] MEDS ORDERED: SODIUM CHLORIDE 0.9% 1000ML 1,000 ML IV ONE (10:30)
--- NOTE | 2019-04-26 11:09 | Gastrointestinal Consultation ---
Date of Consultation April 26, 2019 Assessment & Plan (1) Acute pancreatitis: 28 year old male admitted w/ acute, mild pancreatitis clinically improving. CT and ABD US w/o gallstones or biliary dilation but does note uncomplicated pancreatitis. He was made NPO, started on LR and analgesia PRN, clinically improving NPO --> can advance to clear liquids as tolerated Analgesia PRN Antiemetics PRN LR 250 mL/hr Trend LFTs Arrange MRCP to evaluate the biliary system Strict ETOH cessation was discussion, he verbalized understanding Thank you for allowing us to participate in the care of this patient. Please call with any acute changes, questions or concerns. Please see addendum below with additional recommendation from my supervising physician. Present on Admission?: Yes Supervising Physician Co-Signing Physician Notes I have seen and examined the patient with SARA Young whose note reflects our findings and plan. History of Present Illness Reason for Consultation: pancreatitis Requesting Physician: Dayana Attending Physician: Jn Anne DO History of Present Illness 28 year old male with admitted through the ED with abdominal pain, nausea and vomiting - GI asked to evaluate for pancreatitis. Pt is seen and evaluated, chart reviewed. Endorses a history of daily ETOH use. Normally drinks 1-2 40 oz beers daily. Has been drinking less over the past 1-2 weeks and he has had mild pain. Last drink of ETOH was 04/24/19, beer. He endorses mild upper abdominal pain, intermittent that would initially resolve with passing stool/gas. However, about 48 hours ago, this pain returned and was worse. Sharp, stabbing. Midline. Associated w/ nausea/vomiting. No hematemesis or coffee ground emesis. No black or bloody stools. No new meds ETOH daily No prior abd surgery No prior episdoes of pancreatitis ABD US: The visualized portions of the pancreas appear mildly enlarged and heterogeneous. No shadowing gallstones are identified. There is no intra or extrahepatic biliary ductal dilatation. A small volume of ascites is seen in the right upper quadrant. CT: The pancreas appears enlarged, heterogeneous, and edematous and the pancreas is surrounded by fluid. Correlate clinically and with serum amylase/lipase levels for evidence of acute pancreatitis.There is a moderate volume of abdominopelvic ascites.Question mild diffuse colonic wall thickening. Correlate clinically for evidence of a mild nonspecific pancolitis. Allergies Allergy/AdvReac Type Severity Reaction Status Date / Time milk Allergy Unknown unknown Unverified 04/25/19 13:15 No Known Allergies AdvReac Unknown ANAPHYLAXIS Unverified 04/25/19 13:15 Home Medications Home Medications Medication Instructions Recorded Confirmed Type No Known Home Medications 04/25/19 04/25/19 History Patient History Medical History Acute alcoholic pancreatitis (Acute) Alcohol use disorder (Chronic) Surgical History No pertinent past surgical history (Chronic) Family History Other No significant family history Social History Preferred Language: Danish Communication Ability: Effective Beliefs That Will Affect Care: None marital status: Single Current Living Situation: Significant Other current occupational status: unemployed Other Information That Helps Us Care for You: No Feels Safe at Home: Yes Smoking Status: Light tobacco smoker Tobacco Type: cigarettes Do You Dip or Chew Tobacco: No Hx Alcohol Use: Yes Alcohol type: beer Hx Substance Use: No Review of Systems Constitutional: no fever, no chills, no body aches and no fatigue Respiratory: no cough, no dyspnea and no wheezing Cardiovascular: no chest pain, no radiating jaw, neck or arm pain, no dyspnea on exertion and no claudication Gastrointestinal: + abdominal pain; no nausea, no hematemesis, no cramping, no blood in stools and no melena Physical Exam Constitutional: WD/WN, vitals as above Neck: trachea midline Respiratory: normal respiratory effort, lungs clear to auscultation Cardiovascular: RRR, no murmur, no edema Gastrointestinal (Abdomen): normal bowel sounds, soft, nontender, no hepatosplenomegaly Skin: no rashes, warm and dry Results & Data Vital Signs (Past 12 Hours) Vital Signs Temp Pulse Pulse Pulse Resp BP BP 04/26/19 08:16 135 H 04/26/19 07:44 36.9 C 127 H 17 128/90 04/26/19 06:34 138 H 124/91 04/26/19 03:43 137 H 135/79 04/26/19 02:56 36.8 C 130 H 20 135/79 04/26/19 00:47 137 H 128/92 04/25/19 23:11 37.1 C 125 H 18 141/89 H Pulse Ox 04/26/19 08:16 04/26/19 07:44 96 04/26/19 06:34 06/03/19 03:43 04/26/19 02:56 97 04/26/19 00:47 04/25/19 23:11 98 Laboratory Results 04/26/19 04/26/19 04/25/19 Range/Units 05:49 05:49 20:44 WBC 8.04 (4.8-10.8) K/uL RBC 4.61 L (4.7-6.1) M/uL Hgb 14.1 (14.0-18.0) g/dL Hct 41.4 L (42-52) % MCV 89.8 (80-100) fL MCH 30.6 (25-34) pg MCHC 34.1 (32-36) g/dL RDW Std Deviation 45.5 (36.4-46.3) fL RDW Coeff of Cherise 13.9 (11.5-14.5) % Plt Count 221 (130-400) K/uL MPV 9.4 (7.4-10.4) fL Immature Gran % (Auto) % Neut % (Auto) % Lymph % (Auto) % [place] % (Auto) % Eos % (Auto) % Baso % (Auto) % Immature Gran # (Auto) (0.00-0.02) K/uL Neut # (Auto) (1.4-6.5) K/uL Lymph # (Auto) (1.2-3.4) K/uL [place] # (Auto) (0.11-0.59) K/uL Eos # (Auto) (0-0.5) K/uL Baso # (Auto) (0-0.2) K/uL Sodium 135 L 137 (136-145) mmol/L Potassium 4.0 4.3 D (3.5-5.1) mmol/L Chloride 103 103 (98-107) mmol/L Carbon Dioxide 24 22 (21-32) mmol/L Anion Gap 8.0 11.0 (3-11) BUN 6 L 5 L (7-18) mg/dl Creatinine 0.93 0.98 (0.6-1.4) mg/dl Est Cr Clr Drug Dosing 121.0 114.7 ml/min Est GFR ( Amer) 129.9 122.0 Est GFR (Non-Af Amer) 112.1 105.2 BUN/Creatinine Ratio 6.1 L 5.5 L (10-20) Glucose 108 H 137 H (70-99) mg/dl Calcium 8.6 8.8 (8.5-10.1) mg/dl Total Bilirubin 1.5 H (0.2-1) mg/dl AST 57 H (15-37) U/L ALT 65 (12-78) U/L Alkaline Phosphatase 50 (45-117) U/L Total Protein 6.2 L D (6.4-8.2) gm/dl Albumin 3.2 L (3.4-5.0) gm/dl Globulin 3.0 (2.5-4.0) gm/dl Albumin/Globulin Ratio 1.1 (0.9-2) Lipase 5616 H (73-393) U/L Folate (>5.38) ng/ml Urine Color Urine Appearance (Clear) Urine pH (4.5-7.5) Ur Specific [place] (1.000-1.030) Urine Protein (Negative) Urine Glucose (UA) (Negative) Urine Ketones (Negative) Urine Blood (Negative) Urine Nitrite (Negative) Urine Bilirubin (Negative) Urine Urobilinogen (Negative) Ur Leukocyte Esterase (Negative) Ethyl Alcohol mg/dL (0-3) mg/dl 04/25/19 04/25/19 04/25/19 Range/Units 19:43 18:40 17:58 WBC (4.8-10.8) K/uL RBC (4.7-6.1) M/uL Hgb (14.0-18.0) g/dL Hct (42-52) % MCV (80-100) fL MCH (25-34) pg MCHC (32-36) g/dL RDW Std Deviation (36.4-46.3) fL RDW Coeff of Cherise (11.5-14.5) % Plt Count (130-400) K/uL MPV (7.4-10.4) fL Immature Gran % (Auto) % Neut % (Auto) % Lymph % (Auto) % [place] % (Auto) % Eos % (Auto) % Baso % (Auto) % Immature Gran # (Auto) (0.00-0.02) K/uL Neut # (Auto) (1.4-6.5) K/uL Lymph # (Auto) (1.2-3.4) K/uL [place] # (Auto) (0.11-0.59) K/uL Eos # (Auto) (0-0.5) K/uL Baso # (Auto) (0-0.2) K/uL Sodium (136-145) mmol/L Potassium (3.5-5.1) mmol/L Chloride (98-107) mmol/L Carbon Dioxide (21-32) mmol/L Anion Gap (3-11) BUN (7-18) mg/dl Creatinine (0.6-1.4) mg/dl Est Cr Clr Drug Dosing ml/min Est GFR ( Amer) Est GFR (Non-Af Amer) BUN/Creatinine Ratio (10-20) Glucose (70-99) mg/dl Calcium (8.5-10.1) mg/dl Total Bilirubin (0.2-1) mg/dl AST (15-37) U/L ALT (12-78) U/L Alkaline Phosphatase (45-117) U/L Total Protein (6.4-8.2) gm/dl Albumin (3.4-5.0) gm/dl Globulin (2.5-4.0) gm/dl Albumin/Globulin Ratio (0.9-2) Lipase (73-393) U/L Folate > 24.00 (>5.38) ng/ml Urine Color Yellow Urine Appearance Clear (Clear) Urine pH 5.0 (4.5-7.5) Ur Specific [place] > 1.045 H (1.000-1.030) Urine Protein Negative (Negative) Urine Glucose (UA) Negative (Negative) Urine Ketones Negative (Negative) Urine Blood Negative (Negative) Urine Nitrite Negative (Negative) Urine Bilirubin Negative (Negative) Urine Urobilinogen Negative (Negative) Ur Leukocyte Esterase Negative (Negative) Ethyl Alcohol mg/dL < 3.0 (0-3) mg/dl 04/25/19 04/25/19 Range/Units 12:07 12:07 WBC 8.24 (4.8-10.8) K/uL RBC 4.43 L (4.7-6.1) M/uL Hgb 13.7 L (14.0-18.0) g/dL Hct 38.9 L (42-52) % MCV 87.8 (80-100) fL MCH 30.9 (25-34) pg MCHC 35.2 (32-36) g/dL RDW Std Deviation 43.9 (36.4-46.3) fL RDW Coeff of Cherise 13.6 (11.5-14.5) % Plt Count 302 (130-400) K/uL MPV 8.9 (7.4-10.4) fL Immature Gran % (Auto) 0.2 % Neut % (Auto) 66.7 % Lymph % (Auto) 19.4 % [place] % (Auto) 11.8 % Eos % (Auto) 1.7 % Baso % (Auto) 0.2 % Immature Gran # (Auto) 0.02 (0.00-0.02) K/uL Neut # (Auto) 5.49 (1.4-6.5) K/uL Lymph # (Auto) 1.60 (1.2-3.4) K/uL [place] # (Auto) 0.97 H (0.11-0.59) K/uL Eos # (Auto) 0.14 (0-0.5) K/uL Baso # (Auto) 0.02 (0-0.2) K/uL Sodium 134 L (136-145) mmol/L Potassium 3.1 L (3.5-5.1) mmol/L Chloride 100 (98-107) mmol/L Carbon Dioxide 23 (21-32) mmol/L Anion Gap 11.0 (3-11) BUN 6 L (7-18) mg/dl Creatinine 1.21 (0.6-1.4) mg/dl Est Cr Clr Drug Dosing 88.6 ml/min Est GFR ( Amer) 94.5 Est GFR (Non-Af Amer) 81.6 BUN/Creatinine Ratio 5.2 L (10-20) Glucose 129 H (70-99) mg/dl Calcium 9.3 (8.5-10.1) mg/dl Total Bilirubin 1.2 H (0.2-1) mg/dl AST 145 H (15-37) U/L ALT 113 H (12-78) U/L Alkaline Phosphatase 80 (45-117) U/L Total Protein 8.2 (6.4-8.2) gm/dl Albumin 4.3 (3.4-5.0) gm/dl Globulin 3.9 (2.5-4.0) gm/dl Albumin/Globulin Ratio 1.1 (0.9-2) Lipase 6676 H (73-393) U/L Folate (>5.38) ng/ml Urine Color Urine Appearance (Clear) Urine pH (4.5-7.5) Ur Specific [place] (1.000-1.030) Urine Protein (Negative) Urine Glucose (UA) (Negative) Urine Ketones (Negative) Urine Blood (Negative) Urine Nitrite (Negative) Urine Bilirubin (Negative) Urine Urobilinogen (Negative) Ur Leukocyte Esterase (Negative) Ethyl Alcohol mg/dL (0-3) mg/dl
--- NOTE | 2019-04-26 17:35 | Magnetic Resonance Report ---
MRCP CLINICAL HISTORY: Acute pancreatitis. COMPARISON STUDY: Abdominal CT end abdominal ultrasound dated 04/25/2019. TECHNIQUE: Abdominal MRCP is performed using various T2-weighted sequences in the axial and coronal p lanes. IV contrast was not administered for this examination. 3-D reformats are created and assessed. The examination is degraded by the presence of a moderate volume of abdominal ascites. FINDINGS: The gallbladder is normal in appearance. No gallstones are identified. There is no intra or extrahepatic biliary ductal dilatation. The common bile duct measures up to 3 mm. There are no filli ng defects to suggest choledocholithiasis. The pancreatic duct is normal in caliber. Pancreatic ducta l anatomy cannot be fully assessed, as the portion of the duct within the pancreatic head is not visu alized. The liver, spleen, adrenal glands, and kidneys are grossly normal. The pancreas appears enlarged and edematous. There is a moderate volume of retroperitoneal fluid and upper abdominal ascites. No bowel obstruction is seen. The visualized bony structures appear intact. Small pleural effusions are noted. These have increased in size from yesterday. IMPRESSION: 1. No gallstones are identified and there is no intra or extrahepatic biliary ductal dilatation. 2. The pancreatic duct is normal in caliber. Pancreatic ductal anatomy cannot be fully assessed, as t he pancreatic duct was not visualized in the region of the pancreatic head. 3. There is a moderate volume of retroperitoneal fluid and upper abdominal ascites. 4. Small pleural effusions have increased in size from yesterday. Dictated: 04/26/2019 4:53 PM Transcribed: 04/26/2019 5:35 PM Leslie [id number] [facility] Electronically signed by: Yordy Pollock M.D. 04/26/2019 5:46 PM
[2019-04-27] MEDS: LACTATED RINGER'S 1,000 ML IV SCH ×4 (03:24→20:41)
[2019-04-27] MEDS: KETOROLAC TROMETHAMINE 15 MG/ML VIAL IV PRN ×2 (03:59→15:18)
[2019-04-27] MEDS: GABAPENTIN 600 MG TAB PO SCH ×3 (05:45→23:45)
[2019-04-27] MEDS: HYDROmorphone INJ 0.5 MG/0.5 ML SYR IV PRN ×4 (05:48→18:14)
[2019-04-27 06:06] LABS: Hematocrit (blood only) 35.1 % (42-52); Hemoglobin 11.8 g/dL (14.0-18.0); Mean Corpuscular Hgb Conc 33.6 g/dL (32-36); Mean Corpuscular Volume 90.7 fL (80-100); Mean Platelet Volume 9.1 fL (7.4-10.4); Platelet Count 185 K/uL (130-400); RDW Coefficient of Variation 14.1 % (11.5-14.5); RDW Standard Deviation 46.8 fL (36.4-46.3); Red Blood Count 3.87 M/uL (4.7-6.1); White Blood Count 7.28 K/uL (4.8-10.8)
[2019-04-27 06:42] LABS: Albumin Level 2.7 gm/dl (3.4-5.0); Calcium 8.6 mg/dl (8.5-10.1); Creatinine Clr Calc Pharmacy 125.9 ml/min; Est GFR (African American) 133.4; Est GFR (Non-African American) 115.1; Potassium 3.7 mmol/L (3.5-5.1)
[2019-04-27 06:45] LABS: Albumin Globulin Ratio 0.9 (0.9-2); Globulin 3.1 gm/dl (2.5-4.0); Total Protein 5.8 gm/dl (6.4-8.2)
[2019-04-27] MEDS ORDERED: SODIUM CHLORIDE 0.9% 1000ML 1,000 ML IV ONE (06:51)
--- NOTE | 2019-04-27 06:55 | Hospitalist Progress Note ---
Date of Service April 27, 2019 Assessment & Plan (1) Acute pancreatitis: This is a 28-year-old male with PMH of alcohol use disorder who presents with worsening abdominal pain x 5 days who was found to have acute pancreatitis. -etoh induced with h/o heavy alcohol intake, last drink last evening [employer] -Tachycardic at 110, afebrile, no leukocytosis -Lipase of 6676, also with transaminitis -Ct abd/pelvis: the pancreas appears enlarged, heterogeneous, and edematous and the pancreas is surrounded by fluid. There is a moderate volume of abdominopelvic ascites. Question mild diffuse colonic wall thickening -Received 3 L NSS in ED. 2 More boluses / and today. Will continue IV hydration with LR @ 200 ml/L -Start Clears, Pain control. Monitor Daily Labs -Abstinence d/w patient -GI on case -Clears (2) Transaminitis: AST of 145, ALT of 113, and T bili of 1.2, LFTs improving -ED provider discussed with GI service due to concern initially for choledocholithiasis but felt to be more consistent with alcoholic pancreatitis -No gallstones or intra or extrahepatic biliary ductal dilatation on GB ultrasound. CT abd/pelvis consistent with acute pancreatitis. No intrahepatic biliary ductal dilatation -Continue monitoring liver profile (3) Alcohol use disorder: Serum alcohol level <3 -IV thiamine and folic acid given in ED -Gabapentin and IV ativan per withdrawal protocol -Additional PRN ativan for anxiety/agitation -PO Thiamine, folic acid and MV tomorrow DVT Ppx: Early ambulation Code status: FULL PCP: Alison Dispo: transfer to med surg ROS-No Headache, No Visual Changes, No Nausea, No Vomiting, No Fever, No Chills, No Neck Pain or Stiffness, No Chest Pain, No Palpitations, No SOB, No KRISHNA, No Cough, No Sputum, No Wheezing, +Abdominal Pain, No Diarrhea, No Hematemesis, No Hemoptysis, No Unexpected Weight Loss, No Flank pain, No Melena, No Hematochezia , No Frequency, No Urgency, No Burning, No Hematuria, No Rashes, No Diaphoresis. Appetite is Normal Physical Exam Gen-AAO x 3, NAD, Afebrile Head-NCAT, EOMI, PERRLA, Anicteric Sclera, No Posterior Pharyngeal Erythema Neck-Supple, No JVD, No Thyromegaly, No Masses, No LAD, No Bruits Lungs-Clear to Auscultation Bilaterally, No Rales, No Rhonchi, No Wheezing, No Crepitus Chest-No S4, +S1, +S2, No S3, No Murmurs, No Rubs, No Gallops, No Ectopy Abdomen-Soft, Bowel Sounds Present, Tender, Non Distended, No Hepatomegaly, No Splenomegaly, No Palpable Masses, No Rebound, No Rigidity, No Guarding Musculoskeletal-Full Range of Motion Bilaterally, No CVAT Extremities-No Cyanosis, No Clubbing, No Edema Nuero-Cranial Nerves II-XII grossly intact, Motor WNL, DTRs WNL, Strength WNL, Non Focal Psych-Normal Mood Results & Data Vital Signs (Past 12 Hours) Vital Signs Temp Pulse Pulse Resp BP Pulse Ox 04/27/19 03:33 37.6 C H 112 H 17 126/80 98 04/26/19 23:35 112 H 04/26/19 23:24 37.2 C 118 H 17 115/72 98 04/26/19 19:13 37.9 C H 117 H 18 125/87 97 Labs reviewed, Lipase still elevated
[2019-04-27] MEDS: FOLIC ACID 1 MG TAB PO SCH (09:11)
[2019-04-27] MEDS: THIAMINE HCL 100 MG TAB PO SCH (09:12)
[2019-04-27] MEDS: MULTIVITAMIN TAB PO SCH (09:12)
--- NOTE | 2019-04-27 09:15 | Gastroenterology Progress Note ---
Date of Service April 27, 2019 Assessment & Plan (1) Acute pancreatitis: 28 year old male admitted w/ acute, mild pancreatitis clinically improving and ETOH withdrawal. CT and ABD US w/o gallstones or biliary dilation but does note uncomplicated pancreatitis. MRCP w/o evidence of biliary dilation. He is tolerating clear liquids, clinically approving from a pancreatic standpoint Continued ETOH withdrawal protocol Low fat diet as tolerated Analgesia PRN Antiemetics PRN LR maintenance fluid Strict ETOH cessation was discussion, he verbalized understanding GI to sign off. Thank you for allowing us to participate in the care of this patient. Please call with any acute changes, questions or concerns. Please see addendum below with additional recommendation from my supervising physician. Supervising Physician Co-Signing Physician Notes late entry: Patient was seen and examined the patient on 04/27 with SARA Young whose note reflects our findings and plan. Subjective Pt was seen and evaluated, chart reviewed. No acute events noted overnight. Feels well. No longer has abd pain. No nausea, vomiting. Moved bowels. Regular, formed stool. Denies black or bloody stool. Still feels slightly dehydrated, dark urine althouhg feels this is starting to improve. Tolerated clear liquids. Tells me he understands the importance of ETOH abstinence moving forward. No fever, chills, CP, SOB. No new meds ETOH daily No prior abd surgery No prior episdoes of pancreatitis ABD US: The visualized portions of the pancreas appear mildly enlarged and heterogeneous. No shadowing gallstones are identified. There is no intra or extrahepatic biliary ductal dilatation. A small volume of ascites is seen in the right upper quadrant. CT: The pancreas appears enlarged, heterogeneous, and edematous and the pancreas is surrounded by fluid. Correlate clinically and with serum amylase/lipase levels for evidence of acute pancreatitis.There is a moderate volume of abdom inopelvic ascites.Question mild diffuse colonic wall thickening. Correlate clinically for evidence of a mild nonspecific pancolitis. MRCP: No gallstones are identified and there is no intra or extrahepatic biliary ductal dilatation. The pancreatic duct is normal in caliber. Review of Systems Constitutional: no fever, no chills and no fatigue Respiratory: no cough, no dyspnea and no wheezing Cardiovascular: no chest pain, no radiating jaw, neck or arm pain and no dyspnea on exertion Gastrointestinal: no abdominal pain, no nausea, no hematemesis, no dysphagia, no blood in stools and no melena Physical Exam Constitutional: WD/WN, vitals as above Neck: trachea midline Respiratory: normal respiratory effort, lungs clear to auscultation Cardiovascular: Rate/Rhythm: regular rhythm and + tachycardic Gastrointestinal (Abdomen): normal bowel sounds, soft, nontender, no hepatosplenomegaly Skin: no rashes, warm and dry Results & Data Vital Signs (Past 12 Hours) Vital Signs Temp Pulse Pulse Resp BP Pulse Ox 04/27/19 08:48 37.2 C 109 H 16 117/76 96 04/27/19 07:50 37.4 C 118 H 20 118/70 95 04/27/19 03:33 37.6 C H 112 H 17 126/80 98 04/26/19 23:35 112 H 04/26/19 23:24 37.2 C 118 H 17 115/72 98 Laboratory Results 04/27/19 04/27/19 Range/Units 05:34 05:34 WBC 7.28 (4.8-10.8) K/uL RBC 3.87 L (4.7-6.1) M/uL Hgb 11.8 L (14.0-18.0) g/dL Hct 35.1 L (42-52) % MCV 90.7 (80-100) fL MCH 30.5 (25-34) pg MCHC 33.6 (32-36) g/dL RDW Std Deviation 46.8 H (36.4-46.3) fL RDW Coeff of Cherise 14.1 (11.5-14.5) % Plt Count 185 (130-400) K/uL MPV 9.1 (7.4-10.4) fL Sodium 138 (136-145) mmol/L Potassium 3.7 (3.5-5.1) mmol/L Chloride 105 (98-107) mmol/L Carbon Dioxide 26 (21-32) mmol/L Anion Gap 7.0 (3-11) BUN 6 L (7-18) mg/dl Creatinine 0.91 (0.6-1.4) mg/dl Est Cr Clr Drug Dosing 125.9 ml/min Est GFR ( Amer) 133.4 Est GFR (Non-Af Amer) 115.1 BUN/Creatinine Ratio 7.0 L (10-20) Glucose 69 L (70-99) mg/dl Calcium 8.6 (8.5-10.1) mg/dl Total Bilirubin 2.0 H (0.2-1) mg/dl AST 38 H (15-37) U/L ALT 40 (12-78) U/L Alkaline Phosphatase 46 (45-117) U/L Total Protein 5.8 L (6.4-8.2) gm/dl Albumin 2.7 L (3.4-5.0) gm/dl Globulin 3.1 (2.5-4.0) gm/dl Albumin/Globulin Ratio 0.9 (0.9-2) Lipase 3194 H (73-393) U/L
--- NOTE | 2019-04-27 10:55 | Hospitalist Progress Note ---
Date of Service April 27, 2019 Assessment & Plan (1) Acute pancreatitis: This is a 28-year-old male with PMH of alcohol use disorder who presents with worsening abdominal pain x 5 days who was found to have acute pancreatitis. -etoh induced with h/o heavy alcohol intake, last drink last evening [employer] -Tachycardic at 110, afebrile, no leukocytosis -Lipase of 6676, also with transaminitis -Ct abd/pelvis: the pancreas appears enlarged, heterogeneous, and edematous and the pancreas is surrounded by fluid. There is a moderate volume of abdominopelvic ascites. Question mild diffuse colonic wall thickening -Received 3 L NSS in ED. 2 More boluses 04/26 and today. Will continue IV hydration with LR @ 200 ml/L -Start Clears, Pain control. Monitor Daily Labs -Abstinence d/w patient -GI on case -Adv diet (2) Transaminitis: AST of 145, ALT of 113, and T bili of 1.2, LFTs improving -ED provider discussed with GI service due to concern initially for choledocholithiasis but felt to be more consistent with alcoholic pancreatitis -No gallstones or intra or extrahepatic biliary ductal dilatation on GB ultrasound. CT abd/pelvis consistent with acute pancreatitis. No intrahepatic biliary ductal dilatation -Continue monitoring liver profile (3) Alcohol use disorder: Serum alcohol level <3 -IV thiamine and folic acid given in ED -Gabapentin and IV ativan per withdrawal protocol -Additional PRN ativan for anxiety/agitation -PO Thiamine, folic acid and MV tomorrow DVT Ppx: Early ambulation Code status: FULL PCP: Alison Dispo: transfer to med surg/dc 1-2 days ROS-No Headache, No Visual Changes, No Nausea, No Vomiting, No Fever, No Chills, No Neck Pain or Stiffness, No Chest Pain, No Palpitations, No SOB, No KRISHNA, No Cough, No Sputum, No Wheezing, +Abdominal Pain, No Diarrhea, No Hematemesis, No Hemoptysis, No Unexpected Weight Loss, No Flank pain, No Melena, No Hematochezia, No Frequency, No Urgency, No Burning, No Hematuria, No Rashes, No Diaphoresis. Appetite is Normal Physical Exam Gen-AAO x 3, NAD, Afebrile Head-NCAT, EOMI, PERRLA, Anicteric Sclera, No Posterior Pharyngeal Erythema Neck-Supple, No JVD, No Thyromegaly, No Masses, No LAD, No Bruits Lungs-Clear to Auscultation Bilaterally, No Rales, No Rhonchi, No Wheezing, No Crepitus Chest-No S4, +S1, +S2, No S3, No Murmurs, No Rubs, No Gallops, No Ectopy Abdomen-Soft, Bowel Sounds Present, Tender, Non Distended, No Hepatomegaly, No Splenomegaly, No Palpable Masses, No Rebound, No Rigidity, No Guarding Musculoskeletal-Full Range of Motion Bilaterally, No CVAT Extremities-No Cyanosis, No Clubbing, No Edema Nuero-Cranial Nerves II-XII grossly intact, Motor WNL, DTRs WNL, Strength WNL, Non Focal Psych-Normal Mood Results & Data Vital Signs (Past 12 Hours) Vital Signs Temp Pulse Pulse Resp BP Pulse Ox 04/27/19 08:48 37.2 C 109 H 16 117/76 96 04/27/19 07:50 37.4 C 118 H 20 118/70 95 04/27/19 03:33 37.6 C H 112 H 17 126/80 98 04/26/19 23:35 112 H 04/26/19 23:24 37.2 C 118 H 17 115/72 98 labs checked
[2019-04-28] MEDS: HYDROmorphone INJ 0.5 MG/0.5 ML SYR IV PRN ×6 (01:34→22:23)
[2019-04-28] MEDS: LACTATED RINGER'S 1,000 ML IV SCH ×5 (01:36→18:40)
[2019-04-28 06:34] LABS: Albumin Level 2.4 gm/dl (3.4-5.0); BUN Creatinine Ratio 6.1 (10-20); Calcium 8.4 mg/dl (8.5-10.1); Est GFR (African American) 139.8; Est GFR (Non-African American) 120.6; Potassium 3.2 mmol/L (3.5-5.1)
[2019-04-28 06:37] LABS: Albumin Globulin Ratio 0.8 (0.9-2); Bilirubin,Total 2.2 mg/dl (0.2-1); Globulin 3.2 gm/dl (2.5-4.0); Total Protein 5.6 gm/dl (6.4-8.2)
[2019-04-28] MEDS: FOLIC ACID 1 MG TAB PO SCH (07:52)
[2019-04-28] MEDS: MULTIVITAMIN TAB PO SCH (07:52)
[2019-04-28] MEDS: THIAMINE HCL 100 MG TAB PO SCH (07:52)
[2019-04-28] MEDS: KETOROLAC TROMETHAMINE 15 MG/ML VIAL IV PRN (07:58)
[2019-04-28] MEDS ORDERED: POTASSIUM CHLORIDE 20 MEQ TABCR PO STA (08:50)
[2019-04-28] MEDS ORDERED: BISACODYL 5 MG TABEC PO ONE (09:51)
[2019-04-28] MEDS: GABAPENTIN 600 MG TAB PO SCH (11:18)
[2019-04-28 16:23] LABS: BUN Creatinine Ratio 5.6 (10-20); Calcium 8.8 mg/dl (8.5-10.1); Creatinine Clr Calc Pharmacy 121.9 ml/min; Est GFR (African American) 128.3; Est GFR (Non-African American) 110.7; Potassium 3.3 mmol/L (3.5-5.1)
--- NOTE | 2019-04-28 21:20 | Hospitalist Progress Note ---
Date of Service April 28, 2019 Assessment & Plan (1) Acute pancreatitis: Presents with worsening abdominal pain on admission CTabd/pelvis showed pancreas appears enlarged, heterogeneous, and edematous and the pancreas is surrounded by fluid. There is a moderate volume of abdominopelvic ascites. Question mild diffuse colonic wall thickening Lipase on admission 6676 Received IVF Lipase trending down tolerated clear liquid diet Pain controlled Diet advanced to low fat GI on board Clinically stable (2) Transaminitis: AST of 145, ALT of 113, and T bili of 1.2 on admission Gallbladder u/s showed no shadowing gallstones are identified. There is no intra or extrahepatic biliary ductal dilatation. MRCP showed no gallstones are identified and there is no intra or extrahepatic biliary ductal dilatation. Liver enzymes back to normal (3) Alcohol use disorder: Serum alcohol level <3 on admission Counseling on alcohol cessation On gabapentin alcohol withdrawn protocol Continue PO Thiamine, folic acid and MV Hypokalemia K replaced Monitor BMP DVT Ppx: ambulates Code status: FULL PCP: Alison Dispo: Plan to discharge home tommow Subjective Pt was seen and examined Lying in bed with no distress Pt said that he feels much better He tolerated clear liquid diet Diet any chest pain, palpitation, dizziness and SOB Physical Exam Physical Exam: General- No acute distress Head- atraumatic Eyes- PERRL, EOMI, ENT- oropharynx clear Neck- supple, no JVD Lungs- clear to auscultation Heart- regular rhythm; no murmur Abdomen- normal bowel sounds, soft, nontender Extremities- no calf tenderness Neuro- alert, oriented x 3; PERRL, EOMI; no facial palsy; no dysarthria Skin- warm & dry Results & Data Vital Signs (Past 12 Hours) Vital Signs Temp Pulse Resp BP Pulse Ox 04/28/19 15:48 36.9 C 102 H 18 151/97 H 96
[2019-04-29] MEDS: HYDROmorphone INJ 0.5 MG/0.5 ML SYR IV PRN (02:06)
[2019-04-29] MEDS: KETOROLAC TROMETHAMINE 15 MG/ML VIAL IV PRN (08:25)
[2019-04-29] MEDS: FOLIC ACID 1 MG TAB PO SCH (08:31)
[2019-04-29] MEDS: THIAMINE HCL 100 MG TAB PO SCH (08:32)
[2019-04-29] MEDS: MULTIVITAMIN TAB PO SCH (08:32)
[2019-04-29 08:45] LABS: BUN Creatinine Ratio 4.9 (10-20); Creatinine Clr Calc Pharmacy 139.7 ml/min; Est GFR (African American) 140.5; Est GFR (Non-African American) 121.2; Potassium 3.4 mmol/L (3.5-5.1)
[2019-04-29] MEDS ORDERED: POTASSIUM CHLORIDE 20 MEQ TABCR PO STA (09:56)
[2019-04-29] MEDS ORDERED: GABAPENTIN 600 MG TAB PO SCH (12:00)
--- NOTE | 2019-04-29 14:31 | Hospitalist Progress Note ---
Date of Service April 29, 2019 Assessment & Plan (1) Acute pancreatitis: Presents with worsening abdominal pain on admission CTabd/pelvis showed pancreas appears enlarged, heterogeneous, and edematous and the pancreas is surrounded by fluid. There is a moderate volume of abdominopelvic ascites. Question mild diffuse colonic wall thickening Lipase on admission 6676, then trending down to 960 today Received IVF Tolerated low fat diet Pain controlled GI on board Clinically stable (2) Transaminitis: AST of 145, ALT of 113, and T bili of 1.2 on admission Gallbladder u/s showed no shadowing gallstones are identified. There is no intra or extrahepatic biliary ductal dilatation. MRCP showed no gallstones are identified and there is no intra or extrahepatic biliary ductal dilatation. Liver enzymes back to normal Counseling on alcohol cessation (3) Alcohol use disorder: Serum alcohol level <3 on admission Counseling on alcohol cessation Refused inpatient alcohol rehab Received gabapentin alcohol withdrawn protocol Continue PO Thiamine, folic acid and MV Hypokalemia K replaced Increase potassium intake in diet Monitor BMP DVT Ppx: ambulates Code status: FULL PCP: Alison Dispo: Will discharge home today Subjective Pt was seen and examined Sitting at the edge of the bed with no distress eating lunch Pt said that he feels fine He tolerated his diet he has been walking in the hallway with no discomfort He does not have any abnormal behavior Denies any chest pain, palpitation, dizziness, hallucination and SOB Physical Exam Physical Exam: General- No acute distress Head- atraumatic Eyes- PERRL, EOMI, ENT- oropharynx clear Neck- supple, no JVD Lungs- clear to auscultation Heart- regular rhythm; no murmur Abdomen- normal bowel sounds, soft, nontender Extremities- no calf tenderness Neuro- alert, oriented x 3; PERRL, EOMI; no facial palsy; no dysarthria Skin- warm & dry Results & Data Vital Signs (Past 12 Hours) Vital Signs Temp Pulse Resp BP BP Pulse Ox 04/29/19 13:56 37.3 C 85 12 146/95 H 153/93 H 94 04/29/19 08:00 37.3 C 92 H 12 146/95 H 94
--- NOTE | 2019-04-30 08:45 | Discharge Summary ---
Date of Service April 29, 2019 Admission HPI Per Admitting Provider This is a 28-year-old male with PMH of alcohol use disorder who presents with worsening abdominal pain x 5 days. Patient started to develop a tugging and twisting sensation in his epigastrium on Friday. Has since then continued to have pain and developed nausea and vomiting as well as diarrhea. Pain is in the midepigastrium currently with radiation to his back. Denies any abdominal pain similar to this in the past. Denies any history of pancreatitis. Patient endorses drinking two 40 ounce beers daily and has done so for the past 2 years. Has drank less than usual these past few days and has experienced tremors that went away once he drank again. Last drink was last night. Denies any fever, chills, lightheadedness, headache, chest pain, palpitations, shortness of breath, hematemesis, constipation, melena or hematochezia. Patient is normotensive but tachycardic up to 110 initially. Lipase of 6676. Also with transaminitis with AST of 145, ALT of 113, and T bili of 1.2. Serum alcohol level is less than 3. Admission Exam Per Admitting Provider General Appearance: WD/WN, well-built male, no apparent distress Head: normocephalic, atraumatic Eyes: normal inspection, non-icteric, PERRL, EOMI ENT: hearing grossly normal, pharynx normal (dry mucous membranes) Neck: supple, no JVD, no adenopathy Respiratory/Chest: lungs clear to auscultation. No wheezes, rales or rhonci. No respiratory distress or accessory muscle use Cardiovascular: tachycardic, no murmur, normal peripheral pulses Abdomen/GI: normal bowel sounds, soft, tender to palpation in epigastrium, LUQ Extremities/Musculoskelatal: normal inspection, no calf tenderness, normal capillary refill, no pedal edema Neurologic/Psych: alert, normal mood/affect, oriented x 3 Skin: mild jaundice noted in trunk, warm/dry Principal Diagnosis Acute pancreatitis Alcohol abuse Transaminitis Hypokalemia Discharge Exam General- No acute distress Head- atraumatic Eyes- PERRL, EOMI, ENT- oropharynx clear Neck- supple, no JVD Lungs- clear to auscultation Heart- regular rhythm; no murmur Abdomen- normal bowel sounds, soft, nontender Extremities- no calf tenderness Neuro- alert, oriented x 3; PERRL, EOMI; no facial palsy; no dysarthria Skin- warm & dry Discharge Data Allergies Allergy/AdvReac Type Severity Reaction Status Date / Time No Known Allergies AdvReac Unknown ANAPHYLAXIS Unverified 04/25/19 13:15 Consultations 04/25/19 16:17 ED Decision to Admit Stat 04/26/19 08:00 Consult Gastroenterology Routine Ordered Studies 04/25/19 12:21 CT abd pelvis oral and IV con Stat 04/25/19 16:03 US gallbladder Stat 04/26/19 11:20 MR MRCP Routine MRCP CLINICAL HISTORY: Acute pancreatitis. COMPARISON STUDY: Abdominal CT end abdominal ultrasound dated 04/25/2019. TECHNIQUE: Abdominal MRCP is performed using various T2-weighted sequences in the axial and coronal planes. IV contrast was not administered for this examination. 3-D reformats are created and assessed. The examination is degraded by the presence of a moderate volume of abdominal ascites. FINDINGS: The gallbladder is normal in appearance. No gallstones are identified. There is no intra or extrahepatic biliary ductal dilatation. The common bile duct measures up to 3 mm. There are no filling defects to suggest choledocholithiasis. The pancreatic duct is normal in caliber. Pancreatic ductal anatomy cannot be fully assessed, as the portion of the duct within the pancrea tic head is not visualized. The liver, spleen, adrenal glands, and kidneys are grossly normal. The pancreas appears enlarged and edematous. There is a moderate volume of retroperitoneal fluid and upper abdominal ascites. No bowel obstruction is seen. The visualized bony structures appear intact. Small pleural effusions are noted. These have increased in size from yesterday. IMPRESSION: 1. No gallstones are identified and there is no intra or extrahepatic biliary ductal dilatation. 2. The pancreatic duct is normal in caliber. Pancreatic ductal anatomy cannot be fully assessed, as the pancreatic duct was not visualized in the region of the pancreatic head. 3. There is a moderate volume of retroperitoneal fluid and upper abdominal ascites. 4. Small pleural effusions have increased in size from yesterday. Dictated: 04/26/2019 4:53 PM Transcribed: 04/26/2019 5:35 PM Leslie [id number] [email or web address] Electronically signed by: Yordy Pollock M.D. 04/26/2019 5:46 PM Dictated: 04/26/19 1653 Transcribed: 04/26/19 1735 ULTRASOUND RIGHT UPPER QUADRANT ABDOMEN CLINICAL HISTORY: Right upper quadrant abdominal pain. COMPARISON STUDY: Abdominal CT performed the same day 04/25/2019 TECHNIQUE: Real-time, grayscale, and color flow sonography of the right upper quadrant of the abdomen was performed. Images are reviewed in the transverse and longitudinal planes. FINDINGS: Liver: The liver is normal in size and echotexture. There is no intrahepatic biliary ductal dilatation. The main portal vein is patent. Gallbladder: The gallbladder is normal in appearance. No gallstones are iden tified. There is no gallbladder wall thickening or pericholecystic fluid. A sonographic Sanchez's sign is reportedly absent. The common bile duct measures up to 0.5 cm in diameter. Pancreas: Visualized portions of the pancreatic head and body appear mildly enlarged and heterogeneous. The splenic vein is patent. Right kidney: Survey images of the right kidney demonstrate normal size and echotexture. There is no hydronephrosis. Ascites: There is a small volume of ascites identified in the right upper quadrant. IMPRESSION: 1. The visualized portions of the pancreas appear mildly enlarged and heterogeneous. 2. No shadowing gallstones are identified. There is no intra or extrahepatic biliary ductal dilatation. 3. A small volume of ascites is seen in the right upper quadrant. Electronically signed by: Yordy Pollock M.D. 04/25/2019 5:09 PM Dictated: 04/25/19 1707 Transcribed: 04/25/[address] SCAN OF THE ABDOMEN AND PELVIS WITH IV CONTRAST CLINICAL HISTORY: Right-sided abdominal pain. COMPARISON STUDY: No priors. TECHNIQUE: Following the IV administration of 95 cc of Optiray 320, CT scan of the abdomen and pelvis is performed from the lung bases to the proximal femora. Images are reviewed in the axial, sagittal, and coronal planes. IV contrast was administered without complication. Oral contrast was utilized. A dose lowering technique was utilized adhering to the principles of ALARA. CT DOSE: 263.97 mGy.cm FINDINGS: Lung bases: The heart is normal in size and without pericardial effusion. The lung bases are clear. Liver: The contrast-enhanced liver is normal in size, contour, and attenuation. There is no intrahepatic biliary ductal dilatation. The hepatic veins and portal veins are patent. Gallbladder: Unremarkable. Spleen: Normal in size and attenuation. Pancreas: The pancreas appears enlarged and heterogeneous. The gland enhances homogeneously. There is fluid surrounding the pancreas. The splenic vein is patent. Adrenal glands: Unremarkable. Kidneys: The contrast enhanced kidneys are normal in size and without hydronephrosis. The kidneys enhance symmetrically. Abdominal vasculature: The abdominal aorta is normal in course and caliber. Bowel: The colon is underdistended. Mild diffuse colonic wall thickening is suggested. No bowel obstruction is seen. The appendix is normal as visualized. Peritoneum: There is a moderate volume of abdominopelvic ascites. No intraperitoneal free air is seen. Lymphadenopathy: None. Pelvic viscera: The bladder, prostate, and seminal vesicles are normal as visualized. Skeletal structures: No lytic or blastic lesions are seen. IMPRESSION: 1. The pancreas appears enlarged, heterogeneous, and edematous and the pancreas is surrounded by fluid. Correlate clinically and with serum amylase/lipase levels for evidence of acute pancreatitis. 2. There is a moderate volume of abdominopelvic ascites. 3. Question mild diffuse colonic wall thickening. Correlate clinically for evidence of a mild nonspecific pancolitis. 4. Additional findings as above. Electronically signed by: Yordy Pollock M.D. 04/25/2019 3:58 PM Dictated: 04/25/19 1550 Transcribed: 04/25/19 1550 Hospital Course (1) Acute pancreatitis: Presents with worsening abdominal pain on admission CTabd/pelvis showed pancreas appears enlarged, heterogeneous, and edematous and the pancreas is surrounded by fluid. There is a moderate volume of abdominopelvic ascites. Question mild diffuse colonic wall thickening Lipase on admission 6676, then trending down to 960 today Received IVF Tolerated low fat diet Pain controlled GI on board Clinically stable (2) Transaminitis: AST of 145, ALT of 113, and T bili of 1.2 on admission Gallbladder u/s showed no shadowing gallstones are identified. There is no intra or extrahepatic biliary ductal dilatation. MRCP showed no gallstones are identified and there is no intra or extrahepatic biliary ductal dilatation. Liver enzymes back to normal Counseling on alcohol cessation (3) Alcohol use disorder: Serum alcohol level <3 on admission Counseling on alcohol cessation Refused inpatient alcohol rehab Received gabapentin alcohol withdrawn protocol Continue PO Thiamine, folic acid and MV Hypokalemia K replaced Increase potassium intake in diet Monitor BMP DVT Ppx: ambulates Code status: FULL PCP: Alison Dispo: Will discharge home today Total Time Total Time Spent Total Time Spent (In Minutes): 35 minutes Total Time Includes: Examination of the Patient, Discharge Planning, Medication Reconciliation, Communication With Other Providers and Other Discharge Plan Discharge Items Patient Disposition: Home - Self-Care Reason For Visit: ACUTE PANCREATITIS,ALCOHOL WITHDRAWAL Discharge Diagnosis: Acute pancreatitis Alcohol abuse Transaminitis Hypokalemia Discharge Goals: Decrease discomfort Activity: Resume your previous activity Non-emergency contact: Primary Care Provider Call non-emergency contact if: you have any medication questions Follow-up/Referrals: Satinder Rosas [Primary Care Provider] - Diet: Low Fat Addtl Provider Instructions: Please call to schedule a follow up appointment with your primary care provider in 1 week Counseling on alcohol cessation Fall precaution Prescriptions: New thiamine HCl (vitamin B1) [Vitamin B-1] 100 mg Tablet 100 mg PO QAM 30 Days Qty: 30 RF: 0 folic acid 1 mg Tablet 1 mg PO QAM 30 Days Qty: 30 RF: 0 No Action No Known Home Medications RF: 0 Stand-Alone Forms: [facility] Discharge Orders: Discharge Order (Routine); Ordered 04/29/19 Ordered By: Andre Lombardo Admission Data Admit Date/Time: 04/25/19 17:52 Attending Provider: Andre Lombardo Admit Provider: Rayshawn Bishop Primary Care Provider: Satinder Rosas Other Providers: Jn Anne ; Korin Pina ; Rayshawn Bishop Service: Medical Other Interventions: Discharge Summary Assessment (RN) Last Done: 04/29/19 13:56 DC Date/Time DO NOT enter until pt leaves facility: 04/29/19 16:02
== END 2019-04-29 16:02 | disposition home or self-care (01) | DRG 440 ==
LOC: ED 11:39 → 2E 17:52 → SUATTDRO 17:52 → 2E 18:53 → 4E 04-27 06:55